=== PATIENT | male | born 1990 | race Caucasian/White ===

== ENCOUNTER 2017-11-24 21:21 | Emergency (ER) | payer SELFPAY ==
[~2017-11-24] VITALS: Ht 177.8 cm; Wt 70.3 kg
[2017-11-24 22:00] VITALS: BP 120/79
== END 2017-11-24 22:35 | disposition home or self-care (01) ==
LOC: ER 21:25
DX: K13.79 Other lesions of oral mucosa (principal); Z76.0 Encounter for issue of repeat prescription
CPT/HCPCS: 99283; A4606; Z7610

== ENCOUNTER 2017-12-31 19:37 | Emergency (ER) | payer SELFPAY ==
[~2017-12-31] VITALS: Ht 177.8 cm; Wt 68.0 kg
[2017-12-31 20:15] VITALS: BP 117/66
== END 2017-12-31 20:38 | disposition home or self-care (01) ==
LOC: ER 19:39
DX: Z76.0 Encounter for issue of repeat prescription (principal); F31.9 Bipolar disorder, unspecified
CPT/HCPCS: 99283; A4606; Z7610

== ENCOUNTER 2018-02-16 08:24 | Emergency (ER) | payer SELFPAY ==
[~2018-02-16] VITALS: Ht 177.8 cm; Wt 67.1 kg
[2018-02-16 08:29] VITALS: BP 122/66
== END 2018-02-16 08:42 | disposition home or self-care (01) ==
LOC: ER 08:25
DX: Z76.0 Encounter for issue of repeat prescription (principal); F31.9 Bipolar disorder, unspecified; Z60.2 Problems related to living alone
CPT/HCPCS: 99283; A4606; Z7610

== ENCOUNTER 2018-04-17 10:48 | Emergency (ER) | payer MEDICAID ==
[~2018-04-17] VITALS: Ht 177.8 cm; Wt 70.3 kg
[2018-04-17 11:10] VITALS: BP 110/72
== END 2018-04-17 11:27 | disposition home or self-care (01) ==
LOC: ER 10:48
DX: F31.9 Bipolar disorder, unspecified (principal); F19.10 Other psychoactive substance abuse, uncomplicated; Z60.2 Problems related to living alone; Z76.0 Encounter for issue of repeat prescription
CPT/HCPCS: 99283; A4606; Z7610; Z7502

== ENCOUNTER 2018-08-20 21:54 | Emergency (ER) | payer OTHER ==
[~2018-08-20] VITALS: Ht 177.8 cm; Wt 67.1 kg
[2018-08-20 22:15] VITALS: BP 128/62
--- NOTE | 2018-08-20 23:40 | NUR ---
CALLED NURSING JEWEL SAWYER RE: [place]. MEDICATION IS NOT AVAILABLE.
[2018-08-21] MEDS ORDERED: LamoTRIgine 100 MG TABLET PO SCH (09:00)
== END 2018-08-20 23:45 | disposition home or self-care (01) ==
LOC: ER 21:54
DX: F31.9 Bipolar disorder, unspecified (principal); L63.9 Alopecia areata, unspecified; Z90.89 Acquired absence of other organs; Z90.49 Acquired absence of other specified parts of digestive tract; Z60.2 Problems related to living alone

== ENCOUNTER 2018-10-19 20:45 | Emergency (ER) | payer OTHER ==
[~2018-10-19] VITALS: Ht 177.8 cm; Wt 70.3 kg
[2018-10-19 20:47] VITALS: BP 124/75
== END 2018-10-19 21:50 | disposition home or self-care (01) ==
LOC: ER 20:50
DX: F31.9 Bipolar disorder, unspecified (principal); Z90.89 Acquired absence of other organs; Z90.49 Acquired absence of other specified parts of digestive tract; Z60.2 Problems related to living alone

== ENCOUNTER 2018-11-19 13:34 | Emergency (ER) | payer OTHER ==
[~2018-11-19] VITALS: Ht 177.8 cm; Wt 72.6 kg
--- NOTE | 2018-11-19 13:58 | NUR ---
PT BIB SELF C/O DIFFUSE ABD PAIN X 2-3 WKS. DENIES N/V/D @THIS TIME, PT IS AAOX4 ,NOT IN RESPIRATORY DISTRESS, HOOKED TO MONITOR, V/S STABLE, KEPT RESTED AND COMFORTABLE, WILL CONTINUE TO MONITOR.
[2018-11-19] MEDS ORDERED: IV NS 0.9% 1,000 ML BAG IV ONE (14:30)
[2018-11-19] MEDS ORDERED: ONDANSETRON HCL/PF 4 MG/2 ML VIAL IVP ONE (14:30)
[2018-11-19] MEDS ORDERED: MORPHINE SULFATE INJ 2 MG/ML DISP.SYRIN IV ONE (14:30)
[2018-11-19] MEDS ORDERED: ONDANSETRON HCL/PF 4 MG/2 ML VIAL ONE (14:43)
[2018-11-19] MEDS ORDERED: MORPHINE SULFATE INJ 2 MG/ML DISP.SYRIN ONE (14:43)
[2018-11-19] MEDS ORDERED: MORPHINE SULFATE INJ 4 MG/ML DISP.SYRIN ONE (14:44)
--- NOTE | 2018-11-19 14:45 | NUR ---
IV LINE ESTABLISHED, LABS DRAWNED AND SENT TO LAB.
[2018-11-19 14:47] LABS: BASOPHILS % (AUTO) 0.6 % (0.0-2.0); EOSINOPHILS % (AUTO) 1.1 % (0.0-6.0); HEMATOCRIT 48 % (39-51); HEMOGLOBIN 16.4 g/dL (13.5-17.5); LYMPHOCYTES # (AUTO) 1.8 /CMM (0.8-4.8); LYMPHOCYTES % (AUTO) 21.9 % (20.0-44.0); MEAN CORPUSCULAR HGB CONC 34 g/dl (31.0-36.0); MEAN CORPUSCULAR VOLUME 90 fL (80-96); MONOCYTES # (AUTO) 0.7 /CMM (0.1-1.30); MONOCYTES % (AUTO) 8.9 % (2.0-12.0); NEUTROPHILS # (AUTO) 5.5 /CMM (1.8-8.9); NEUTROPHILS % (AUTO) 67.5 % (43.0-81.0); PLATELET COUNT (AUTO) 178 /CMM (150-450); RED BLOOD CELL COUNT(AUTO) 5.29 MIL/uL (4.5-6.0); WHITE BLOOD COUNT (AUTO) 8.2 K/uL (4.3-11.0)
--- NOTE | 2018-11-19 14:48 | NUR ---
PT IS WHEELED TO CT SCAN VIA WHEELCHAIR.
--- NOTE | 2018-11-19 14:51 | NUR ---
URINAL GIVEN BUT UNABLE TO PROVIDE URINE SPECIMEN.
[2018-11-19 14:54] LABS: CALCIUM, SERUM 8.4 mg/dL (8.5-10.1); POTASSIUM 3.9 mmol/L (3.5-5.1)
[2018-11-19 15:00] LABS: ALBUMIN 3.7 g/dL (3.4-5.0); BILIRUBIN,DIRECT 0.1 mg/dL (0.0-0.2); BILIRUBIN,TOTAL 0.4 mg/dL (0.2-1.0); TOTAL PROTEIN, SERUM 6.4 g/dL (6.4-8.2)
[2018-11-19] MEDS ORDERED: IOHEXOL-300 100 ML VIAL IV ONE (15:03)
--- NOTE | 2018-11-19 15:32 | NUR ---
URINE SPECIMEN COLLECTED AND SENT TO LAB.
[2018-11-19 15:36] LABS: APPEARANCE,URINE Clear (CLEAR); BILIRUBIN,URINE Negative (NEGATIVE); BLOOD, URINE Negative Ery/uL (NEGATIVE); COLOR,URINE Yellow (YELLOW); KETONES,URINE Negative (NEGATIVE); LEUKOCYTE ESTERASE ,URINE Negative (NEGATIVE); NITRITE, URINE Negative (NEGATIVE); PH,URINE 8.5 (5.0-8.0); PROTEIN,URINE Negative (NEGATIVE); UGLUCOSE Negative (NEGATIVE); UROBILINOGEN,URINE 0.2 EU/dL (0.2)
--- NOTE | 2018-11-19 16:09 | NUR ---
IV removed. Catheter intact and site benign. Pressure and 4x4 applied to site. No bleeding noted. Patient discharged to home in stable condition. Written and verbal after care instructions given. Patient verbalizes understanding of instruction.
[2018-11-19 16:10] VITALS: BP 122/71
== END 2018-11-19 16:11 | disposition home or self-care (01) ==
LOC: ER 13:40
DX: K52.9 Noninfective gastroenteritis and colitis, unspecified (principal); Z90.89 Acquired absence of other organs; Z90.49 Acquired absence of other specified parts of digestive tract; Z60.2 Problems related to living alone
CPT/HCPCS: 36415; 74178; 80048; 80076; 81001; 83690; 85025; 96361; 96374; 96375; 99284; J2270 ×2; J2405; J7030; Q9967; 81000-TC

== ENCOUNTER 2018-12-19 22:27 | Emergency (ER) | payer OTHER ==
[~2018-12-19] VITALS: Ht 177.8 cm; Wt 72.6 kg
[2018-12-19 22:46] VITALS: BP 124/68
== END 2018-12-19 23:01 | disposition home or self-care (01) ==
LOC: ER 22:33
DX: F31.9 Bipolar disorder, unspecified (principal); Z76.0 Encounter for issue of repeat prescription; Z90.89 Acquired absence of other organs; Z90.49 Acquired absence of other specified parts of digestive tract; Z60.2 Problems related to living alone